=== PATIENT | male | born 1995 | race Hispanic/Latino ===

== ENCOUNTER 2018-08-23 18:54 | Inpatient (IN) | payer SELFPAY ==
[~2018-08-23] VITALS: Ht 172.7 cm; Wt 74.4 kg
--- NOTE | 2018-08-23 19:42 | NUR ---
RETURNED TO WAITING ROOM
[2018-08-23 21:00] LABS: HEMATOCRIT 53.5 % (39.0-50.0); HEMOGLOBIN 18.3 g/dl (14.0-18.0); IMMATURE GRANULOCYTES 0.5 % (0.0-5.0); MEAN CELL VOLUME 88.9 fL CALC (80.0-100.0); MEAN CORPUSCULAR HGB 30.4 pG CALC (26.0-32.0); MEAN CORPUSCULAR HGB CONC 34.2 g/L CALC (32.0-36.0); NEUT# 13.93 thou/uL (1.82-7.42); RED BLOOD COUNT 6.02 mill/uL (4.70-6.10); RED CELL DISTRI WIDTH 13.2 % (11.5-15.5)
[2018-08-23 21:11] LABS: ALBUMIN 5.1 g/dL (3.2-5.0); ALKALINE PHOSPHATASE 105 u/l (38-126); AMYLASE 91 u/l (30-110); ANION GAP 16 (6-22 (CALC)); BILIRUBIN, TOTAL 2.1 mg/dL (0.0-1.4); BUN 19 mg/dL (9-20); BUN/CREATININE RATIO 20 (12-20 (CALC)); CARBON DIOXIDE 28 mmol/l (22-30); CHLORIDE 100 mmol/l (95-108); CREATININE 0.9 mg/dL (0.7-1.3); GFR > 60 ML/MIN (>=60 (CALC)); GFR FOR AFR.AMER. > 60 ML/MIN (>=60 (CALC)); LIPASE 129 u/l (23-300); POTASSIUM 4.1 mmol/l (3.5-5.1); SGOT/AST 30 u/l (17-59); SODIUM 140 mmol/l (137-146); TOTAL PROTEIN 8.9 g/dL (6.3-8.2)
--- NOTE | 2018-08-23 21:23 | NUR ---
PT RESTING QUIETLY ON STRETCHER
[2018-08-23 21:56] LABS: URINE BLOOD DIPSTICK MODERATE (NEGATIVE); URINE COLOR YELLOW; URINE GLUCOSE - DIPSTICK NEGATIVE (NEGATIVE); URINE KETONE 15 mg/dL (NEGATIVE); URINE LEUK ESTERASE NEGATIVE (NEGATIVE); URINE NITRITE - DIPSTICK NEGATIVE (Negative); URINE PROTEIN - DIPSTICK 30 mg/dL (NEG-TRACE); URINE SPECIFIC GRAVITY >=1.030; URINE UROBILINOGEN - DIPSTICK 0.2 E.U./dL (0.2)
[2018-08-23 22:09] LABS: URINE BILIRUBIN - DIPSTICK NEGATIVE (NEGATIVE)
[2018-08-23 22:10] LABS: URINE CALCIUM OXALATE CRYSTALS FEW lpf; URINE WBC 0-2 WBC/hpf (0-5)
--- NOTE | 2018-08-23 22:15 | NUR ---
AWAITING DISPOSITION. RESTING QUIETLY.
[2018-08-23 22:55] VITALS: BP 135/78
--- NOTE | 2018-08-23 23:50 | NUR ---
Admission Note Report Given to: FLAVIO LANDA Transported by: W/C Transported with: X Nurse Transporter X Patent IV O2 Referral And Information Aide
--- NOTE | 2018-08-23 23:57 | NUR ---
RECEIVED REPORT FROM NURSE ASH, PATIENT BROUGHT TO ROOM VIA WHEELCHAIR, C/O ABDOMINAL PAIN UPON ADMISSION AT ER. ADMITTING DX; ABDOMINAL PAIN AND SMALL BOWEL OBSTRUCTION. PATIENT NAURUAN SPEAKING ONLY, DENIES PAIN OR DISCOMFORT AT THIS TIME, AMBULATORY, ABLE TO MOVE ALL EXTREMITIES, HAS IV LINE LAC G20 SALINE LOCK, PATENT. PATIENT ORIENTED TO ROOM AND CALL LIGHT SYSTEM. WILL CONTINUE TO MONITOR.
--- NOTE | 2018-08-24 01:30 | NUR ---
RECEIVED A PHONE ORDER FROM DR. WAGONER, MAY INSERT NGT IF PATIENT C/O NAUSEA AND VOMITING.
--- NOTE | 2018-08-24 02:32 | NUR ---
PATIENT CURRENTLY RESTING IN BED, DENIES PAIN OR DISCOMFORT AT THIS TIME, CALL ENDER TAY
--- NOTE | 2018-08-24 02:35 | NUR ---
DR. TOTH MADE AWARE OF CONSULT PER NURSE ASH AT ER.
[2018-08-24 04:39] VITALS: BP 128/78
--- NOTE | 2018-08-24 04:48 | NUR ---
PATIENT SLEEPING IN BED, DENIES PAIN OR DISCOMFORTS AT THIS TIME, WITH AN ONGOING IV OF NORMAL SALINE@ 150CC/HR INFUSING WELL , MAINTAINED ON NPO. CALL LIGHT AT REACH.
[2018-08-24 07:50] VITALS: BP 124/65
--- NOTE | 2018-08-24 07:50 | NUR ---
ASSESSMENT IS COMPLETED: IV SITE IS FREE FROM REDNESS OR EDEMA. HR IS REG,PULSES ARE STRONG X4, ABD IS SOFT WITH HYPOACTIVE BS. BREATH SOUNDS ARE CLEAR, BILATERALLY. NO C/O PAIN. CALL VALENTIN WITHIN REACH.
--- NOTE | 2018-08-24 10:53 | NUR ---
IV SITE IN LAC BEGAN TO PUFF. STOPPED IV FLUIDS. RESTART IN RAC WITH #22 AFTER 2ND ATTEMPT. REMOVED THE LAC CATHETER INTACT. PT TOLERATED WELL.
--- NOTE | 2018-08-24 10:53 | NUR ---
PT TRANSPORTED TO HAVE A SMALL BOWEL SERIES COMPLETED
--- NOTE | 2018-08-24 12:15 | NUR ---
PT HAS BEEN IN THE XRAY.
--- NOTE | 2018-08-24 12:30 | NUR ---
PT RETURNED FROM HAVING SMALL BOWLE SERIES. WILL BE TAKEN BACK DOWN AROUND 1345 FOR THE REST OF THE PICTURES. DR. MARQUES ORDERS.
--- NOTE | 2018-08-24 13:14 | NUR ---
WANTS AN NGT PLACE. WAS PLACED IN LEFT NARE BY STORM ERWIN. AND MAYTE MUNIZ . WILL HOLD OFF ON SUCTION UNTIL THE REMAINDER OF THE TEST COMPLETED
--- NOTE | 2018-08-24 13:27 | NUR ---
PT STARTED TO VOMIT AND HAD SMALL BLEED COME FROM NGT AREA. XRAY IN TO COMPLETE THE 2ND HALF OF THE TEST
--- NOTE | 2018-08-24 13:37 | NUR ---
PT WAS EXPLAINED BY HEMMER LOCKSTITCH RE: BLEEDING IS FROM THE IRRITATION OF THE TUBE, SOON THEY CALL WITH THE GO AHEAD FOR SUCTION IT WILL BE PLACED ON SUCTION.
--- NOTE | 2018-08-24 13:43 | NUR ---
PT BEGAN VOMITING AND GAGGING NGT ENDED UP COMING OUT.
--- NOTE | 2018-08-24 14:05 | NUR ---
PER MD KEEP NGT OUT UTIL THE TEST IS COMPLETED
[2018-08-24 14:20] VITALS: BP 134/85
--- NOTE | 2018-08-24 14:39 | NUR ---
RAAD FROM MEDICAL RECORDS IN TO TRANSLATE. INFORMING PT RE: TESTING WILL BE COMPLETED AND THEN IF NEED TO HAVE AN NGT WILL AGREE TO IT.
--- NOTE | 2018-08-24 16:00 | NUR ---
PT IS AMBULATING IN THE ROOM.IV SITE IS FREE FROM REDNESS OR EDMEA. HAD MULTIPLE XRAYS COMPLETED: WAITING ON RESULTS.
--- NOTE | 2018-08-24 19:00 | NUR ---
RECIEVED REPORT FROM DAY SHIFT NURSE.PT RESTING IN BED. VISITOR AT BEDSIDE. NO NEEDS AT THIS TIME. CALL VALENTIN IN REACH. WILL CONTINUE TO MONITOR.
[2018-08-24 19:30] VITALS: BP 146/89
--- NOTE | 2018-08-24 21:30 | NUR ---
PT RESTING IN BED WITH VISITOR AT BEDSIDE. PT C/O PAIN 7/10 AND NAUSEA. ASSESMENT COMPLETED AT THIS TIME(SEE INTERVENTIONS) LUNG SOUNDS CLEAR, BS HYPOACTIVE,HEART RATE NORMAL, NO SWELLING OR EDEMA NOTED. NO OTHER NEEDS AT THIS TIME. CALL VALENTIN IN REACH. WILL CONTINUE TO MONITOR.
[2018-08-25] VITALS (10 sets, daily range): BP systolic 129–149; BP diastolic 73–99
--- NOTE | 2018-08-25 | NUR ---
PT RESTING QUIETLY IN BED. NO NEEDS AT THIS TIME. CALL VALENTIN IN REACH. WILL CONTINUE TO MONITOR.
--- NOTE | 2018-08-25 02:02 | NUR ---
PT CALLED FOR INFUSION COMPLETE. PT STATED HE HAD VOMITED x2 IN THE SINK.
--- NOTE | 2018-08-25 02:45 | NUR ---
VAL NEWTON IN TO TRANSLATE FOR BAGGAGE CHECKER TO PT. PT TOLD TO VOMIT INTO BLUR BAGS IF HE CAN AND TO CALL US WHEN HE DOES SO WE CAN OBSERVE IT. PT REQUESTING WATER. MADE AWARE OF STILL NPO STATUS. SWABS PROVIDED AND TOLD NOT TO DRINK THE WATER. PT VERBALIZES UNDERSTANDING AND HAS NO COMPLAINTS OR QUESTIONS AT THIS TIME.
--- NOTE | 2018-08-25 04:00 | NUR ---
PT RESTING QUIETLY IN BED. NO NEEDS AT THIS TIME. CALL VALENTIN IN REACH. WILL CONTINUE TO MONITOR.
[2018-08-25 05:06] LABS: HEMATOCRIT 47.8 % (39.0-50.0); IMMATURE GRANULOCYTES 0.3 % (0.0-5.0); MEAN CELL VOLUME 90.4 fL CALC (80.0-100.0); MEAN CORPUSCULAR HGB 30.6 pG CALC (26.0-32.0); MEAN CORPUSCULAR HGB CONC 33.9 g/L CALC (32.0-36.0); NEUT# 9.6 thou/uL (1.82-7.42); RED BLOOD COUNT 5.29 mill/uL (4.70-6.10); RED CELL DISTRI WIDTH 13.3 % (11.5-15.5)
[2018-08-25 05:20] LABS: HEMOGLOBIN 16.2 g/dl (14.0-18.0)
[2018-08-25 05:34] LABS: ALBUMIN 4.3 g/dL (3.2-5.0); ALKALINE PHOSPHATASE 86 u/l (38-126); AMYLASE 59 u/l (30-110); ANION GAP 15 (6-22 (CALC)); BILIRUBIN, TOTAL 1.4 mg/dL (0.0-1.4); BUN 18 mg/dL (9-20); BUN/CREATININE RATIO 19 (12-20 (CALC)); CARBON DIOXIDE 27 mmol/l (22-30); CHLORIDE 106 mmol/l (95-108); CREATININE 0.9 mg/dL (0.7-1.3); GFR > 60 ML/MIN (>=60 (CALC)); GFR FOR AFR.AMER. > 60 ML/MIN (>=60 (CALC)); LIPASE 84 u/l (23-300); MAGNESIUM 2.3 mg/dL (1.6-2.3); SGOT/AST 25 u/l (17-59); SODIUM 144 mmol/l (137-146); TOTAL PROTEIN 7.4 g/dL (6.3-8.2)
--- NOTE | 2018-08-25 07:28 | NUR ---
ASSESSMENT IS COMPLETED; IV SITE IS FREE FROM REDNESS OR EDEMA. HR IS REG,PULSES ARE STRONG X4, ABD IS SOFT WITH HYPO BS IN UPPER QUAD AND ACTIVE BS IN LOWER QUADS. PT CONTINUES TO HAVE SOME NAUSEA AND VOMITING SOME BILE. PT HAD BEEN TAKING SIPS OF WATER EVEN AFTER BEING EXPLAINED ABOUT DRINKING NO WATER UNTIL INFORMS WITH TEST RESULTS. BREATH SOUNDS ARE CLEAR, BILATERALLY, CONTINUE TO OBSERVE AND MONITOR. CALL VALENTIN WITH IN REACH. ENCOURAGING PT TO AMBULATE TO MOVE THE GAS IN HIS ABDOMEN.
--- NOTE | 2018-08-25 07:40 | NUR ---
ARCENIO MUNIZ INTERPRETED TO PT RE: DRINKING FLUIDS. EXPLAINED THT HE CAN'T HAVE LIQUIDS UNTIL THE DR SAYS SO,VERBALIZED UNDERSTANDING".
--- NOTE | 2018-08-25 12:00 | NUR ---
PT HAS BEEN AMBULATING IN THE ROOM. IV SITE IS FREE FROM REDNESS OR EDEMA.
--- NOTE | 2018-08-25 12:04 | NUR ---
PT WAS INSTRUCTED BY FIREFIGHTING EQUIPMENT SPECIALIST NOT TO DRINK WATER , PT CONTINUES TO DRINK WATER AND EAT ICE CHIPS. CONTINUE TO OBSERVE AND MONITOR.
--- NOTE | 2018-08-25 14:00 | NUR ---
IN TO VISIT PT CAUGHT PT DRINKING WATER FROM THE SINK. NEEDS TO TAKE PT TO OR FOR SURGERY,
--- NOTE | 2018-08-25 14:30 | NUR ---
PT TRANSPORTED TO OR VIA BED FAMILY IN THE ROOM. PROCEDURE EXPLAINED BY [facility]/ IN DETAIL. IN THE ROOM. WELL OR STAFF. CONTINUE TO OSBERVE AND MONITOR.
--- NOTE | 2018-08-25 16:00 | NUR ---
PT REMAINS IN OR.
--- NOTE | 2018-08-25 17:30 | NUR ---
PT RETURNED FROM OR VIA BED , NGT IN PLACE, GAN IN PLACE, SCD'S IN PLACE, DRESSING AND ABD PAAD IN PLACE.
--- NOTE | 2018-08-25 19:18 | NUR ---
ASSESSMENT COMPLETED; NO DISTRESS NOTED; DRESSING TO MIDLINE INCISION IS CDI WITH ABDOMINAL BINDER IN PLACE; NGT PATENT AND SET TO LCS WITH SMALL AMOUNT OF GREEN DRAINAGE NOTED TO CANISTER; PER ORDER; PLACEMENT VERIFIED BY AUSCILTATION; ICE CHIPS PROVIDED; INCENTIVE SPIROMETER GIVEN AND EDUCATION GIVEN; PT. IS PULLING 1000; GOAL SET TO 1500; INSTRUCTED TO USE Q1H WHILE AWAKE; SCD'S IN PLACE TO BLE; ENCOURAGED TO CALL FOR ANY NEEDS; CALL LIGHT IS IN REACH.
--- NOTE | 2018-08-25 22:05 | NUR ---
PT. SITTING UP IN BED WATCHING TV; NO DISTRESS NOTED; DENIES NEEDS/PAIN; ENCOURAGED TO CALL FOR ANY NEEDS; CALL LIGHT IS IN REACH.
--- NOTE | 2018-08-25 23:37 | NUR ---
PT. RESTING IN BED WITH NO DISTRESS NOTED; REPORTS 2/10 ABDOMINAL PAIN; MEDICATED WITH ORDERED TORADOL; WILL REASSESS; DENIES FURTHER NEEDS; VSS; CALL LIGHT IS IN REACH.
--- NOTE | 2018-08-26 03:48 | NUR ---
PT. SITTING UP IN BED USING INCENTIVE SPIROMETER; NO DISTRESS NOTED; DENIES NEEDS/PAIN. ICE CHIPS PROVIDED; CALL LIGHT IS IN REACH.
[2018-08-26 05:21] VITALS: BP 138/80
--- NOTE | 2018-08-26 05:35 | NUR ---
PT. AMBULATED DOWN THE 60'S HALLWAY TO THE WINDOW AND BACK; ASSISTED PT. TO SIT UP IN CHAIR; SET UP TO BRUSH HIS TEETH AND WASH HIS FACE; PT. WILL CALL WHEN READY TO GO BACK TO BED; CALL LIGHT IS IN REACH. NGT SET TO LCS PER ORDER.
[2018-08-26 05:37] LABS: HEMATOCRIT 43.6 % (39.0-50.0); HEMOGLOBIN 14.8 g/dl (14.0-18.0); IMMATURE GRANULOCYTES 0.3 % (0.0-5.0); MEAN CELL VOLUME 92.2 fL CALC (80.0-100.0); MEAN CORPUSCULAR HGB 31.3 pG CALC (26.0-32.0); MEAN CORPUSCULAR HGB CONC 33.9 g/L CALC (32.0-36.0); NEUT# 9.58 thou/uL (1.82-7.42); RED BLOOD COUNT 4.73 mill/uL (4.70-6.10); RED CELL DISTRI WIDTH 13.5 % (11.5-15.5)
[2018-08-26 05:42] LABS: ALKALINE PHOSPHATASE 59 u/l (38-126); AMYLASE 63 u/l (30-110); ANION GAP 11 (6-22 (CALC)); BILIRUBIN, TOTAL 1.2 mg/dL (0.0-1.4); BUN 16 mg/dL (9-20); BUN/CREATININE RATIO 18 (12-20 (CALC)); CARBON DIOXIDE 27 mmol/l (22-30); CHLORIDE 111 mmol/l (95-108); CREATININE 0.9 mg/dL (0.7-1.3); GFR > 60 ML/MIN (>=60 (CALC)); GFR FOR AFR.AMER. > 60 ML/MIN (>=60 (CALC)); LIPASE 94 u/l (23-300); POTASSIUM 3.8 mmol/l (3.5-5.1); SGOT/AST 21 u/l (17-59); SODIUM 145 mmol/l (137-146)
[2018-08-26 05:46] LABS: ALBUMIN 3.1 g/dL (3.2-5.0); TOTAL PROTEIN 5.6 g/dL (6.3-8.2)
--- NOTE | 2018-08-26 07:00 | NUR ---
PT REPORT RECIEVED FROM FLAVIO MOJICA. PT RESTING IN BED. NO S/S OF DISTRESS. CALL LIGHT IN REACH.
[2018-08-26 07:42] VITALS: BP 141/86
--- NOTE | 2018-08-26 07:42 | NUR ---
PT A/O X3. GREENLANDIC SPEAKING ONLY. NG TUBE TO LT NARE IN PLACE; LOW CONTINOUS SUCTION. 150 OUT FROM NG TUBE THIS MORNING; GREEN. RESP EVEN AND UNLABORED. LUNG SOUNDS CLEAR. BOWEL SOUNDS HYPOACTIVE. DRESSING TO ABDOMEN CDI. ABDOMINAL BINDER IN PLACE. #22 RAC D5 NS @125. SITE APPEARS HEALTHY. GAN DRAINING CLEAR YELLOW URINE TO GRAVITY. STRONG RADIAL AND PEDAL PULSES. PT DENIES ANY PAIN OR NEEDS. POC DISCUSSED. INCENTIVE SPIROMETER AT BEDSIDE. SCD IN PLACE. SAFETY PRECAUTIONS IN PLACE. CALL LIGHT IN REACH. WILL CONTINUE TO MONITOR.
--- NOTE | 2018-08-26 10:55 | NUR ---
DR. MOORE IN TO SEE PT
--- NOTE | 2018-08-26 12:00 | NUR ---
PT SITTING IN CHAIR. NO C/O PAIN OR NEEDS. NG TUBE AND GAN IN PLACE. CALL LIGHT IN REACH. WILL CONTINUE TO MONITOR
--- NOTE | 2018-08-26 12:05 | NUR ---
PT HAS SOME ACHING ABDOMINAL PAIN. MEDICATED W/ TORDAL 15 MG IV. REPOSITIONED FOR COMFORT. NG TUBE IN PLACE. GAN DRAINING FREELY. CALL LIGHT IN REACH. WILL CONTINUE TO MONITOR.
--- NOTE | 2018-08-26 12:45 | NUR ---
PT UP TO AMBULATE THE HALLS W/ INFORMATION SECURITY. PT HAD A STEADY GAIT, SOME ABDOMINAL PAIN AROUND INCISION AREA. PT BACK TO BED. NO NEEDS AT THIS TIME. CALL LIGHT IN REACH. WILL CONTINUE TO MONITOR.
--- NOTE | 2018-08-26 15:21 | NUR ---
PT RESTING IN BED. NO C/O PAIN OR NEEDS. GAN DRAINING YELLOW URINE FREELY. NG TUBE IN PLACE. CALL LIGHT IN REACH. WILL CONTINUE TO MONITOR.
[2018-08-26 16:09] VITALS: BP 152/80
[2018-08-26 19:00] VITALS: BP 153/72
--- NOTE | 2018-08-26 20:01 | NUR ---
PT. SITTING UP IN BED WITH NO DISTRESS NOTED; DENIES NEEDS/PAIN. DRESSING CDI TO MIDLINE ABDOMEN AND X2 SMALL SITES WITH GAUZE AND TEGADERM; CDI; NGT PATENT TO LEFT NARE AND SETTINGS TO LCS PER ORDER;NGT PLACEMENT VERIFIED BY AUSCILTATION; REASSESSED TEMP. AND NOW IS 99.5; WILL CONTINUE TO MONITOR. PT. DECLINES SCD'S AT THIS JANIS; ENCOURAGED TO MOVE BLE WHILE IN BED AND DO FEET PEDALS; INCENTIVE SPIROMETER ENCOURAGED TO USE WELL; VERBALIZES UNDERSTANDING; PT. REQUESTING ICE CHIPS WILL PROVIDE; CALL LIGHT IS IN REACH; WILL CONTINUE TO MONITOR.
--- NOTE | 2018-08-26 22:40 | NUR ---
[id number] WITH PT. DOWN THE 60'S HALLWAY AND BACK TO ROOM; PT. AMBULATED FOR A SHORT WHILE IN ROOM WHILE LINENS WERE CHANGED; PT. BACK TO BED; NGT REAPPLIED TO LCS PER ORDER; PT. VOICES NO CONCERNS; INSTRUCTED TO CALL FOR ANY NEEDS; CALL LIGHT IS IN REACH.
--- NOTE | 2018-08-26 23:29 | NUR ---
PT. C/O ABD PAIN 12/03; MEDICATED WITH ORDERED/SCHEDULED TORADOL; WILL REASSESS; DENIES FURTHER NEEDS; CALL LIGHT IS IN REACH.
[2018-08-27 00:09] VITALS: BP 139/83
--- NOTE | 2018-08-27 01:45 | NUR ---
PT. RESTING IN BED WITH NO DISTRESS NOTED; DENIES NEEDS; CALL LIGHT IS IN REACH; WILL CONTINUE TO MONITOR.
[2018-08-27 04:43] VITALS: BP 139/84
[2018-08-27 05:32] LABS: ALBUMIN 3.1 g/dL (3.2-5.0); ALKALINE PHOSPHATASE 62 u/l (38-126); ANION GAP 11 (6-22 (CALC)); BILIRUBIN, TOTAL 1.5 mg/dL (0.0-1.4); BUN 9 mg/dL (9-20); BUN/CREATININE RATIO 13 (12-20 (CALC)); CARBON DIOXIDE 24 mmol/l (22-30); CHLORIDE 109 mmol/l (95-108); CREATININE 0.7 mg/dL (0.7-1.3); GFR > 60 ML/MIN (>=60 (CALC)); GFR FOR AFR.AMER. > 60 ML/MIN (>=60 (CALC)); POTASSIUM 3.6 mmol/l (3.5-5.1); SGOT/AST 22 u/l (17-59); SODIUM 141 mmol/l (137-146); TOTAL PROTEIN 5.7 g/dL (6.3-8.2)
--- NOTE | 2018-08-27 05:35 | NUR ---
PT. MEDICATED WITH ORDERED/SCHED TORADOL; WILL REASSESS; ICE CHIPS PROVIDED; DENIES NEEDS; CALL LIGHT IS IN REACH.
--- NOTE | 2018-08-27 07:00 | NUR ---
REPORT RECIEVED FROM FLAVIO MOJICA. PT SLEEPING. NO S/S OF DISTRESS. CALL LIGHT IN REACH. WILL CONTINUE TO MONITOR
[2018-08-27 07:18] VITALS: BP 139/64
--- NOTE | 2018-08-27 07:18 | NUR ---
PT A/O X3. SPEECH IS CLEAR. RESP EVEN AND UNLABORED. LUNG SOUNDS CLEAR. NG TUBE TO RT NARE IN PLACE; NO OUTPUT NOTED DURING AM ASSESSMENT. BOWEL SOUNDS HYPOACTIVE. DRESSINGS TO ABDOMEN CDI, ABDOMINAL BINDER IN PLACE. STRONG RADIAL AND PEDAL PULSES. #22 RAC D5 NS @125. SITE APPEARS HEALTHY. GAN INTACT, DRAINING CLEAR YELLOW URINE TO GRAVITY. SKIN INTACT. PT DENIES ANY PAIN OR NEEDS. POC DISCUSSED. INCENTIVE SPIROMETER AT BEDSIDE. SAFETY PRECAUTIONS IN PLACE. CALL LIGHT IN REACH. WILL CONTINUE TO MONITOR.
--- NOTE | 2018-08-27 11:00 | NUR ---
DR. TOTH IN TO SEE PT
--- NOTE | 2018-08-27 11:05 | NUR ---
NG TUBE REMOVED BY DR. TOTH
--- NOTE | 2018-08-27 12:22 | NUR ---
PT HAS SOME ACHING ABDOMINAL PAIN 3 OUT OF 10 ON PAIN SCALE. MEDICATED W/ 15 MG TORADOL IV. REPOSITIONED FOR COMFORT. PT DENIES ANY FURTHER NEEDS. CALL LIGHT IN REACH. WILL CONTINUE TO MONITOR
[2018-08-27 13:36] LABS: URINE BILIRUBIN - DIPSTICK NEGATIVE (NEGATIVE); URINE BLOOD DIPSTICK TRACE-INTACT (NEGATIVE); URINE COLOR YELLOW; URINE GLUCOSE - DIPSTICK NEGATIVE (NEGATIVE); URINE KETONE NEGATIVE (NEGATIVE); URINE LEUK ESTERASE NEGATIVE (Negative); URINE NITRITE - DIPSTICK NEGATIVE (Negative); URINE PROTEIN - DIPSTICK NEGATIVE (NEG-TRACE); URINE SPECIFIC GRAVITY 1.015; URINE UROBILINOGEN - DIPSTICK 0.2 E.U./dL (0.2)
[2018-08-27 13:37] LABS: URINE CLARITY CLEAR
[2018-08-27 15:30] VITALS: BP 137/90
--- NOTE | 2018-08-27 17:20 | NUR ---
PT SIITNG IN BED WATCHING TELEVISION. NO C/O PAIN OR NEEDS. CALL LIGHT IN REACH. WILL CONTINUE TO MONITOR.
[2018-08-27 19:00] VITALS: BP 147/89
--- NOTE | 2018-08-27 19:57 | NUR ---
BEDSIDE REPORT RECEIVED FROM YAIMA CHAMBERS. PT RESTING IN BED SUPINE TALKING ON CELL PHONE; ALERT AND ORIENTED. LITHUANIAN SPEAKING ONLY. C/O MILD PAIN TO ABDOMEN. DRESSING CDI AND ABDOMINAL BINDER IN PLACE. BS HYPOACTIVE. RESPIRATIONS EVEN AND UNLABORED ON ROOM AIR. TOLERATING SIPS OF CLEAR LIQUID DIET. PLAN OF CARE REVIEWED. PT ENCOURAGED TO VERBALIZE CONCERNS. STATES UNDERSTANDING. SAFETY MEASURES IN PLACE. CALL LIGHT WITHIN REACH.
--- NOTE | 2018-08-28 | NUR ---
PT ASLEEP AT THIS TIME WITH NO SIGNS OF DISTRESS. DILAUDID AND ZOFRAN GIVEN FOR C/O PAIN. RESPIRATIONS EVEN AND UNLABORED ON ROOM AIR. IV FLUIDS INFUSING WITHOUT DIFFICULY. STAND BY ASSIST; VOIDING CLEAR YELLOW URINE IN URINAL. USES CALL LIGHT PRN FOR ASSISTANCE. SAFETY MEASURES IN PLACE. CALL LIGHT WITHIN REACH.
[2018-08-28 03:38] VITALS: BP 131/63
--- NOTE | 2018-08-28 05:03 | NUR ---
VS STABLE. PT AWAKENS SPONTANEOUSLY. DENIES PAIN. ABOMAINAL BINDER REMAINS IN PLACE. NO ACUTE CHANGES IN CONDITION THROUGHOUT THE NIGHT. SAFETY MEASURES IN PLACE. CALL LIGHT WITHIN REACH.
--- NOTE | 2018-08-28 06:05 | NUR ---
DILAUDID GIVEN AT THIS TIME FOR MODERATE ABDOMINAL PAIN. PT EXPERIENCING NAUSEA, BUT DECLINES ZOFRAN. STATES THAT WOULD RATHER SMELL ALCOHOL PREP PADS AND REQUESTS MORE ALCOHOL PADS. TOLERATING SMALL SIPS OF CLEAR LIQUID.
--- NOTE | 2018-08-28 07:15 | NUR ---
PT LAYING IN BED AWAKE, RESP EVEN AND UNLABORED; CALL VALENTIN IN REACH.
--- NOTE | 2018-08-28 08:15 | NUR ---
DR TABOR CALLED, INQUIRE WHEN LAST BM 08/23; SAID PT CAN HAVE CLEAR LIQUID DIET; WILL BE IN TOMORROW TO SEE PT.
[2018-08-28 08:34] VITALS: BP 117/77
--- NOTE | 2018-08-28 08:36 | NUR ---
ASSESSMENT COMPLETED; PT SITTING UP IN BED ON HIS PHONE; RESP EVEN AND UNLABORED; NO S/S OF DISTRESS NOTED; VITALS STABLE, NO FEVER; LUNGS CLEAR; BS HYPOACTIVE; DRESSING TO ABD CDI, BINDER IN PLACE; STONG PULSES; #22 RAC, D5 1/2 @125CC/HR, SITE APPEARS HEALTHY; AM MEDS ADMINISTERED, TOLERATED WELL; C/O NO PAIN; IS AT BEDSIDE; PT ATE 100% OF CLEAR LIQUID DIET; CALL VALENTIN IN REACH; WILL CONTINUE TO MONITOR.
--- NOTE | 2018-08-28 12:32 | NUR ---
PT FOUND WALKING THE HALLS WITH IV POLE AND PHONE IN HAND; RESP EVEN AND UNLABORED; NO S/S OF DISTRESS NOTED;
--- NOTE | 2018-08-28 13:48 | NUR ---
DR MOORE AND VASYL BARDALES AT BEDSIDE TO DISCUSS POC.
--- NOTE | 2018-08-28 15:56 | NUR ---
PT SITTING UP IN BED WATCHING TV AND ON HIS PHONE; IVF INFUSING WITHOUT DIFFICULTY, SITE APPEARS HEALTHY; PT C/O OF MINIMAL HEART BURN; JEFFY BULB GRADER AWARE; PT VOICE NO OTHER CONCERNS;
[2018-08-28 16:12] VITALS: BP 136/81
--- NOTE | 2018-08-28 19:00 | NUR ---
PT VOMITED AT THIS TIME. C/O NAUSEA AND PAIN.NO OTHER NEEDS AT THIS TIME. CALL VALENTIN IN REACH. WILL CONTINUE TO MONITOR.
[2018-08-28 19:09] VITALS: BP 155/94
--- NOTE | 2018-08-28 19:55 | NUR ---
PT RESTING IN BED WITH VISTIOR AT BEDSIDE. MEDICATED PER ORDER FOR NAUSEA AND PAIN. ASSESMENT COMPLETED AT THIS TIME(SEE INTERVENTION) LUNG SOUNDS CLEAR, HEART SOUNDS NORMAL, BOWEL SOUNDS HYPO ACTIVE, NO SWELLING OR EDEMA, IV INFUSING WELL. ABD HAS ABD BINDER ON, ABD DRESSINGS ARE CDI. NO OTHER NEEDS AT THIS TIME. CALL VALENTIN IN REACH. WILL CONTINUE TO MONITOR.
--- NOTE | 2018-08-29 | NUR ---
PT RESTING IN BED. NO NEEDS AT THIS TIME. NO NAUSEA, VOMITING OR PAIN.CALL VALENTIN IN REACH. WILL CONTINUE TO MONITOR.
--- NOTE | 2018-08-29 04:00 | NUR ---
PT APPEARS TO BE ASLEEP AT THIS TIME. NO S/S OF DISTRESS. IV INFUSING WELL. CALL VALENTIN IN REACH. WILL CONTINUE TO MONITOE.
[2018-08-29 04:06] VITALS: BP 125/67
[2018-08-29 05:34] LABS: HEMATOCRIT 37.7 % (39.0-50.0); IMMATURE GRANULOCYTES 0.2 % (0.0-5.0); MEAN CELL VOLUME 89.5 fL CALC (80.0-100.0); MEAN CORPUSCULAR HGB 30.4 pG CALC (26.0-32.0); NEUT# 3.73 thou/uL (1.82-7.42); RED BLOOD COUNT 4.21 mill/uL (4.70-6.10); RED CELL DISTRI WIDTH 12.8 % (11.5-15.5)
[2018-08-29 05:39] LABS: ALBUMIN 2.8 g/dL (3.2-5.0); ALKALINE PHOSPHATASE 59 u/l (38-126); ANION GAP 10 (6-22 (CALC)); BILIRUBIN, TOTAL 1.2 mg/dL (0.0-1.4); BUN 7 mg/dL (9-20); BUN/CREATININE RATIO 11 (12-20 (CALC)); CARBON DIOXIDE 24 mmol/l (22-30); CHLORIDE 108 mmol/l (95-108); CREATININE 0.7 mg/dL (0.7-1.3); GFR > 60 ML/MIN (>=60 (CALC)); GFR FOR AFR.AMER. > 60 ML/MIN (>=60 (CALC)); HEMOGLOBIN 12.8 g/dl (14.0-18.0); MAGNESIUM 1.7 mg/dL (1.6-2.3); POTASSIUM 3.5 mmol/l (3.5-5.1); SODIUM 139 mmol/l (137-146); TOTAL PROTEIN 5.4 g/dL (6.3-8.2)
[2018-08-29 05:40] LABS: SGOT/AST 54 u/l (17-59)
--- NOTE | 2018-08-29 07:11 | NUR ---
REPORT RECEIVED FROM YAIMA BORJA; PT LAYING ON HIS R SIDE APPEARS TO BE SLEEPING, FAMILY MEMBER IN ROOM; CALL VALENTIN IN REACH.
[2018-08-29 08:32] VITALS: BP 125/80
--- NOTE | 2018-08-29 08:38 | NUR ---
ASSESSMENT COMPLETED; PT SITTING UP IN BED WATCHING TV AND TALKING ON THE PHONE; DRESSING TO ADB CDI, ABD BINDER IN PLACE; HYPOACTICE BS; PULSES STRONG; C/O NO PAIN, NAUSEA; MEDICATED PER EMAR; CALL VALENTIN IN REACH; SAFETY PRECAUTION REINFORCE;
--- NOTE | 2018-08-29 11:33 | NUR ---
PT LAYING IN BED, RESP EVEN AND UNLABORED; FAMILY AT BEDSIDE; VOICE NO COMPLAINS; IVF INFUSING WITHOUT DIFFICULTY, SITE APPEARS HEALTHY; CALL VALENTIN IN REACH.
--- NOTE | 2018-08-29 12:20 | NUR ---
DR MOORE AND VASYL BARDALES AT BEDSIDE TO DISCUSS POC
--- NOTE | 2018-08-29 13:51 | NUR ---
DR GARNETT AT BEDSIDE TO DISCUSS POC
[2018-08-29] MEDS ORDERED: HYDROCO/APAP1 TA9 PO (14:20)
--- NOTE | 2018-08-29 16:03 | NUR ---
ABD DRESSING REMOVED PER DR TABOR; PT REQ NEW ABD PAD APPLIED TO SURGICAL SITE FOR COMFORT; SONI INTACT; PT TOLERATED WELL;
--- NOTE | 2018-08-29 16:24 | NUR ---
Discharge instructions given. Patient verbalizes understanding of same. Discharged in stable condition via Ambulatory to Home with father. All belongings sent with pt. YAIMA BOYCE TRANSLATE TO PT AND FAMILY REGARDING DC INSTRUCTIONS; PT VERBALIZED UNDERSTANDING;
== END 2018-08-29 16:26 | disposition home or self-care (01) | DRG 337 ==
LOC: ED 18:54 → ED-I 23:03 → ED 23:19 → MS2 23:20
PROVIDERS: Emergency Medicine; Internal Medicine Nephrology; Surgery; ADMIT Internal Medicine; ATTEND Internal Medicine
PROC: 0DNB0ZZ Release Ileum, Open Approach (ICD-10-PCS; principal; 2018-08-25)
PROC: 0DNU0ZZ Release Omentum, Open Approach (ICD-10-PCS; 2018-08-25)
PROC: 0DTJ0ZZ Resection of Appendix, Open Approach (ICD-10-PCS; 2018-08-25)
PROC: 0DJD4ZZ Inspection of Lower Intestinal Tract, Percutaneous Endoscopic Approach (ICD-10-PCS; 2018-08-25)
PROC: 3E02340 Introduction of Influenza Vaccine into Muscle, Percutaneous Approach (ICD-10-PCS; 2018-08-25)
DX: K56.50 Intestinal adhesions [bands], unspecified as to partial versus complete obstruction (principal); E86.0 Dehydration; Z23 Encounter for immunization; Z90.5 Acquired absence of kidney
CPT/HCPCS: J0692; J1650; J2710; Q9967; S0164